=== PATIENT | female | born 1975 | race Caucasian/White ===

== ENCOUNTER 2017-07-29 08:27 | Emergency (ER) | payer MEDICAID ==
[~2017-07-29] VITALS: Ht 160 cm; Wt 89.0 kg
[~2017-07-29 08:27] MED LIST: ATOR10TA87 PO; HYDR1TAB PO
[2017-07-29 08:39] VITALS: BP 126/81
[2017-07-29] MEDS ORDERED: cyclobenzaprine 10mg tablet PO ONE (09:00)
[2017-07-29] MEDS ORDERED: ketorolac trometh inj. 60 MG/2 ML VIAL IM ONE (09:00)
[2017-07-29] MEDS ORDERED: METH500T PO (09:23)
== END 2017-07-29 09:37 | disposition home or self-care (01) ==
LOC: ER 08:32
DX: M54.6 Pain in thoracic spine (principal); G89.29 Other chronic pain; M06.9 Rheumatoid arthritis, unspecified; Z79.899 Other long term (current) drug therapy
CPT/HCPCS: 96372; 99283; J1885

== ENCOUNTER 2017-09-25 16:23 | Emergency (ER) | payer MEDICAID ==
[~2017-09-25] VITALS: Ht 160 cm; Wt 90.0 kg
[~2017-09-25 16:23] MED LIST changes: +METH500T PO
[2017-09-25] MEDS ORDERED: CIPR10DR LEFT EAR (16:58)
[2017-09-25 17:24] VITALS: BP 125/75
== END 2017-09-25 17:29 | disposition home or self-care (01) ==
LOC: ER 16:24
DX: H60.92 Unspecified otitis externa, left ear (principal); G89.29 Other chronic pain; M19.90 Unspecified osteoarthritis, unspecified site; Z79.899 Other long term (current) drug therapy
CPT/HCPCS: 99283

== ENCOUNTER 2017-12-18 12:57 | Emergency (ER) | payer MEDICAID ==
[~2017-12-18] VITALS: Ht 160 cm; Wt 92.0 kg
[2017-12-18 13:10] VITALS: BP 129/81
[2017-12-18 13:55] LABS: URINE HCG NEGATIVE (NEG)
[2017-12-18 14:10] LABS: CLARITY,URINE SLIGHTLY CLOUDY (Clear); COLOR,URINE YELLOW (Yellow); GLUCOSE, URINE NEGATIVE (Neg); KETONES,URINE NEGATIVE (Neg); LEUKOCYTE ESTERASE ,URINE NEGATIVE (Neg); NITRITES, URINE POSITIVE (Neg); OCCULT BLOOD,URINE SMALL (Neg); PROTEIN,URINE 30 mg/dl (Neg)
[2017-12-18 14:11] LABS: UA COLLECTION TYPE CLN CATCH MIDSTREAM
[2017-12-18 14:28] LABS: BACTERIA,URINE 4+ /HPF (Neg); WBC,URINE 20-30 /HPF (0-4)
[2017-12-18 14:29] LABS: SQUAMOUS EPITHELIAL CELL,UR MODERATE /LPF (FEW)
[2017-12-18] MEDS ORDERED: ketorolac trometh inj. 60 MG/2 ML VIAL IM ONE (14:45)
[2017-12-18] MEDS ORDERED: CefTRIAXone 1000mg IM Kit (w/lidocaine diluent) IM ONE (14:45)
[2017-12-18] MEDS ORDERED: CIPR-230 PO (14:53)
[2017-12-18] MEDS ORDERED: IBUP-1986 PO (14:53)
== END 2017-12-18 15:07 | disposition home or self-care (01) ==
LOC: ER 12:57
DX: N12 Tubulo-interstitial nephritis, not specified as acute or chronic (principal); R10.31 Right lower quadrant pain; E66.9 Obesity, unspecified; G89.29 Other chronic pain; F17.200 Nicotine dependence, unspecified, uncomplicated; M06.9 Rheumatoid arthritis, unspecified; Z87.442 Personal history of urinary calculi
CPT/HCPCS: 81001; 81025; 87088; 96372; 99284; J0696; J1885; 87077; 87186

== ENCOUNTER 2019-01-18 16:18 | Emergency (ER) | payer MEDICAID ==
[~2019-01-18] VITALS: Ht 160 cm; Wt 85.0 kg
[~2019-01-18 16:18] MED LIST changes: +IBUP-1986 PO; +METH-360 PO; +ONDA4TAB6 PO
[2019-01-18 16:28] VITALS: BP 143/76
[2019-01-18] MEDS ORDERED: ketorolac tromethamine 15mg/ml inj. IM ONE (18:35)
[2019-01-18] MEDS ORDERED: CYCL-1 PO (18:39)
[2019-01-18] MEDS ORDERED: IBUP-1984 PO (18:39)
== END 2019-01-18 19:08 | disposition home or self-care (01) ==
LOC: ER 16:19
DX: S29.012A Strain of muscle and tendon of back wall of thorax, initial encounter (principal); M54.5 Low back pain; M19.90 Unspecified osteoarthritis, unspecified site; G89.29 Other chronic pain; M06.9 Rheumatoid arthritis, unspecified; Z79.899 Other long term (current) drug therapy; Z79.1 Long term (current) use of non-steroidal anti-inflammatories (NSAID); Z87.442 Personal history of urinary calculi; X58.XXXA Exposure to other specified factors, initial encounter; Y93.01 Activity, walking, marching and hiking; Y92.89 Other specified places as the place of occurrence of the external cause; Y99.8 Other external cause status
CPT/HCPCS: 96372; 99283; J1885

== ENCOUNTER 2019-03-17 19:11 | Emergency (ER) | payer MEDICAID, OTHER ==
[~2019-03-17] VITALS: Ht 160 cm; Wt 89.7 kg
[~2019-03-17 19:11] MED LIST changes: +CYCL-1 PO
[2019-03-17 19:24] VITALS: BP 146/92
== END 2019-03-17 20:24 | disposition home or self-care (01) ==
LOC: ER 19:11
DX: J06.9 Acute upper respiratory infection, unspecified (principal); H92.01 Otalgia, right ear; G89.29 Other chronic pain; Z87.442 Personal history of urinary calculi; Z79.899 Other long term (current) drug therapy
CPT/HCPCS: 99281

== ENCOUNTER 2020-08-12 18:27 | Emergency (ER) | payer MEDICAID ==
[~2020-08-12] VITALS: Ht 160 cm; Wt 89.5 kg
[2020-08-12 18:42] VITALS: BP 117/62
== END 2020-08-12 20:28 | disposition home or self-care (01) ==
LOC: ER 18:27
DX: S93.402A Sprain of unspecified ligament of left ankle, initial encounter (principal); X50.9XXA Other and unspecified overexertion or strenuous movements or postures, initial encounter; Y93.89 Activity, other specified; Y92.89 Other specified places as the place of occurrence of the external cause; Y99.8 Other external cause status
CPT/HCPCS: 73560; 73610; 99284

== ENCOUNTER 2020-11-25 18:49 | Emergency (ER) | payer MEDICAID ==
[~2020-11-25] VITALS: Ht 160 cm; Wt 90.0 kg
[2020-11-26 00:06] LABS: BASOPHILS # (AUTO) 0.1 X10'3 (0-0.2); BASOPHILS % (AUTO) 0.8 % (0-1); EOSINOPHILS # (AUTO) 0.2 X10'3 (0-0.9); EOSINOPHILS % (AUTO) 1.8 % (0-6); HEMATOCRIT 36.3 % (35.0-45.0); HEMOGLOBIN 11.9 g/dl (12.0-16.0); LYMPHOCYTES # (AUTO) 4.5 X10'3 (1.1-4.8); LYMPHOCYTES % (AUTO) 49.7 % (21-51); MEAN CORPUSCULAR HEMOGLOBIN 30.3 PG (27.0-31.0); MEAN CORPUSCULAR HGB CONC 32.8 g/dL (33.0-36.5); MEAN CORPUSCULAR VOLUME 92.5 FL (78-98); MEAN PLATELET VOLUME 7.8 FL (7.4-10.4); MONOCYTES # (AUTO) 0.9 X10'3 (0-0.9); MONOCYTES % (AUTO) 10.3 % (2-12); NEUTROPHILS # (AUTO) 3.4 X10'3 (1.8-7.7); NEUTROPHILS % (AUTO) 37.4 % (42-75); PLATELET COUNT 406 X10'3 (140-440); RED BLOOD COUNT 3.93 X10'6 (4.20-5.60); RED CELL DISTRIBUTION WIDTH 13.9 % (11.5-14.5)
[2020-11-26 00:42] LABS: ALANINE AMINOTRANSFERASE 41 U/L (12-78); ALBUMIN 3.4 G/DL (3.4-5.0); ALBUMIN/GLOBULIN RATIO 0.9 (1.1-1.5); ALKALINE PHOSPHATASE 78 IU/L (46-116); ANION GAP 9 (8-16); ASPARTATE AMINO TRANSFERASE 33 U/L (10-37); BILIRUBIN,TOTAL 0.2 MG/DL (0.1-1.0); BLOOD UREA NITROGEN 12 MG/DL (7-18); BUN/CREATININE RATIO 18.5 (6.6-38.0); CALCIUM 8.1 MG/DL (8.5-10.1); CHLORIDE 109 MMOL/L (99-107); CREATININE 0.65 MG/DL (0.40-0.90); GLUCOSE 99 MG/DL (70-104); LIPASE < 50 U/L (73-393); POTASSIUM 3.6 MMOL/L (3.5-5.1); SODIUM 142 MMOL/L (135-145); TOTAL PROTEIN 7.1 G/DL (6.4-8.2); TROPONIN I < 0.04 NG/ML (0.0-0.05); eGFR > 90 ML/MIN
[2020-11-26 01:04] LABS: URINE HCG NEGATIVE (NEG)
[2020-11-26 01:25] LABS: CLARITY,URINE SLIGHTLY CLOUDY (Clear); COLOR,URINE DARK YELLOW (Yellow); GLUCOSE, URINE NEGATIVE (Neg); PROTEIN,URINE NEGATIVE (Neg); UA COLLECTION TYPE CLN CATCH MIDSTREAM
[2020-11-26 01:26] LABS: KETONES,URINE NEGATIVE (Neg); LEUKOCYTE ESTERASE ,URINE NEGATIVE (Neg); NITRITES, URINE NEGATIVE (Neg); OCCULT BLOOD,URINE SMALL (Neg); UROBILINOGEN,URINE 0.2 E.U/dL (0.2-1.0)
[2020-11-26 01:34] LABS: BACTERIA,URINE 1+ /HPF (Neg); MUCUS STRANDS MANY /LPF (Neg); SQUAMOUS EPITHELIAL CELL,UR MODERATE /LPF (FEW); WBC,URINE 0-4 /HPF (0-4)
[2020-11-26 01:35] LABS: CAL OXALATE CRYSTALS 3+ /HPF (NEGATIVE)
[2020-11-26] MEDS ORDERED: GOLYS PO (01:49)
[2020-11-26] MEDS ORDERED: TETanus/Pertussis (Acell)/Diphther VAC/PF (Tdap-Adult) 0.5ml syringe IMVAC ONE (01:55)
[2020-11-26] MEDS ORDERED: bacitracin 15gm ointment TP ONE (01:55)
[2020-11-26 02:06] VITALS: BP 101/62
== END 2020-11-26 02:41 | disposition home or self-care (01) ==
LOC: ER 18:50
DX: K59.00 Constipation, unspecified (principal); R42 Dizziness and giddiness; R11.0 Nausea; R06.02 Shortness of breath; G89.29 Other chronic pain; Z20.3 Contact with and (suspected) exposure to rabies; Z87.442 Personal history of urinary calculi; Z79.899 Other long term (current) drug therapy
CPT/HCPCS: 36415; 74018; 74176; 80053; 81001; 81025; 83690; 84484; 85025; 90471; 90715; 93005; 99285

== ENCOUNTER 2021-03-18 19:36 | Emergency (ER) | payer MEDICAID ==
[~2021-03-18 19:36] MED LIST changes: +GOLYS PO
== END 2021-03-18 23:39 | disposition left against medical advice (07) ==
LOC: ER 19:39
DX: R13.10 Dysphagia, unspecified (principal); Z53.21 Procedure and treatment not carried out due to patient leaving prior to being seen by health care provider

== ENCOUNTER 2022-02-13 18:26 | Emergency (ER) | payer MEDICAID ==
[~2022-02-13] VITALS: Ht 160 cm; Wt 89.5 kg
[2022-02-13 20:00] VITALS: BP 124/70
== END 2022-02-13 21:55 | disposition home or self-care (01) ==
LOC: ER 18:26
DX: J06.9 Acute upper respiratory infection, unspecified (principal); R05.9 Cough, unspecified; R11.2 Nausea with vomiting, unspecified; G89.29 Other chronic pain; Z87.442 Personal history of urinary calculi; Z79.899 Other long term (current) drug therapy
CPT/HCPCS: 99281

== ENCOUNTER 2022-08-06 15:18 | Emergency (ER) | payer MEDICAID ==
[~2022-08-06] VITALS: Ht 160 cm; Wt 97.6 kg
[2022-08-06 16:05] LABS: COLOR,URINE YELLOW (Yellow); GLUCOSE, URINE NEGATIVE (Neg); KETONES,URINE NEGATIVE (Neg); LEUKOCYTE ESTERASE ,URINE NEGATIVE (Neg); NITRITES, URINE NEGATIVE (Neg); OCCULT BLOOD,URINE MODERATE (Neg); PROTEIN,URINE NEGATIVE (Neg)
[2022-08-06 16:08] LABS: BASOPHILS # (AUTO) 0.2 X10'3 (0-0.2); BASOPHILS % (AUTO) 1.5 % (0-1); EOSINOPHILS # (AUTO) 0.3 X10'3 (0-0.9); EOSINOPHILS % (AUTO) 2.3 % (0-6); HEMATOCRIT 39.4 % (35.0-45.0); HEMOGLOBIN 12.7 g/dl (12.0-16.0); LYMPHOCYTES # (AUTO) 5.7 X10'3 (1.1-4.8); LYMPHOCYTES % (AUTO) 42.9 % (21-51); MEAN CORPUSCULAR HEMOGLOBIN 29.4 PG (27.0-31.0); MEAN CORPUSCULAR HGB CONC 32.2 g/dL (33.0-36.5); MEAN CORPUSCULAR VOLUME 91.2 FL (78-98); MEAN PLATELET VOLUME 7.6 FL (7.4-10.4); MONOCYTES # (AUTO) 1.3 X10'3 (0-0.9); MONOCYTES % (AUTO) 9.5 % (2-12); NEUTROPHILS # (AUTO) 5.8 X10'3 (1.8-7.7); NEUTROPHILS % (AUTO) 43.8 % (42-75); PLATELET COUNT 588 X10'3 (140-440); RED BLOOD COUNT 4.31 X10'6 (4.20-5.60); RED CELL DISTRIBUTION WIDTH 15.5 % (11.5-14.5); WHITE BLOOD COUNT 13.2 X10'3 (4.5-11.0)
[2022-08-06 16:09] LABS: CLARITY,URINE SLIGHTLY CLOUDY (Clear); UA COLLECTION TYPE CLN CATCH MIDSTREAM
[2022-08-06 16:10] LABS: URINE HCG NEGATIVE (NEG); WBC,URINE 0-4 /HPF (0-4)
[2022-08-06 16:11] LABS: BACTERIA,URINE FEW /HPF (Neg); MUCUS STRANDS MODERATE /LPF (Neg); SQUAMOUS EPITHELIAL CELL,UR MANY /LPF (FEW)
[2022-08-06 16:14] LABS: ALANINE AMINOTRANSFERASE 45 U/L (12-78); ALBUMIN/GLOBULIN RATIO 0.9 (1.1-1.5); ALKALINE PHOSPHATASE 92 IU/L (46-116); ANION GAP 8 (8-16); ASPARTATE AMINO TRANSFERASE 36 U/L (10-37); BILIRUBIN,TOTAL 0.4 MG/DL (0.1-1.0); BLOOD UREA NITROGEN 13 MG/DL (7-18); BUN/CREATININE RATIO 16.5 (10.0-20.0); CALCIUM 9.3 MG/DL (8.5-10.1); CHLORIDE 105 MMOL/L (99-107); CREATININE 0.79 MG/DL (0.40-0.90); GLUCOSE 105 MG/DL (70-104); LIPASE 56 U/L (73-393); SODIUM 138 MMOL/L (135-145); TOTAL CARBON DIOXIDE 24.6 MMOL/L (24-32); TOTAL PROTEIN 8.3 G/DL (6.4-8.2); eGFR 78 ML/MIN
[2022-08-06] MEDS ORDERED: guaiFENesin 200mg/20mg codeine phos 10ml UD oral syrup PO ONE (17:10)
[2022-08-06] MEDS ORDERED: normal saline 1000ml 1,000 ML IV ONE (17:10)
[2022-08-06] MEDS ORDERED: ondansetron/PF 4mg/2ml inj IV ONE (17:10)
[2022-08-06] MEDS ORDERED: ONDA4TAB12 PO (17:18)
[2022-08-06] MEDS ORDERED: ALBU8HFA PO (17:18)
[2022-08-06] MEDS ORDERED: CALC625T62 PO (17:18)
[2022-08-06] MEDS ORDERED: GUAI-647 PO (17:18)
[2022-08-06] MEDS ORDERED: benzonatate 100mg capsule PO ONE (17:55)
[2022-08-06 19:02] VITALS: BP 112/51
== END 2022-08-06 19:04 | disposition home or self-care (01) ==
LOC: ER 15:18
DX: J40 Bronchitis, not specified as acute or chronic (principal); K59.00 Constipation, unspecified; G89.29 Other chronic pain; M54.9 Dorsalgia, unspecified; Z79.899 Other long term (current) drug therapy; Z79.1 Long term (current) use of non-steroidal anti-inflammatories (NSAID)
CPT/HCPCS: 36415; 71045; 74018; 80053; 81001; 81025; 83690; 85025; 96361; 96374; 99284; J2405; J7030

== ENCOUNTER 2022-09-13 22:14 | Emergency (ER) | payer MEDICAID ==
[~2022-09-13] VITALS: Ht 160 cm; Wt 95.5 kg
[~2022-09-13 22:14] MED LIST changes: +CALC625T62 PO; +ONDA4TAB12 PO
[2022-09-13 22:18] VITALS: BP 156/100
[2022-09-13] MEDS ORDERED: ondansetron 4mg rapidly disintigrating tab PO STA (22:36)
[2022-09-13] MEDS ORDERED: mag hydrox/Alum hydrox/simeth 30ml oral suspension PO ONE (22:40)
[2022-09-13] MEDS ORDERED: pantoprazole 40mg Tablet.DR PO ONE (22:40)
[2022-09-13] MEDS ORDERED: LIDOcaine Viscous 15ml cup MM ONE (22:40)
[2022-09-13] MEDS ORDERED: PANT-47 PO (23:07)
== END 2022-09-13 23:19 | disposition home or self-care (01) ==
LOC: ER 22:15
DX: R12 Heartburn (principal); M19.90 Unspecified osteoarthritis, unspecified site
CPT/HCPCS: 99283

== ENCOUNTER 2022-12-15 14:25 | Emergency (ER) | payer MEDICAID ==
[~2022-12-15] VITALS: Ht 160 cm; Wt 95.5 kg
[~2022-12-15 14:25] MED LIST changes: +PANT-47 PO
[2022-12-15] MEDS ORDERED: dexamethasone sod phosphate 10mg/ml inj IM STA (15:34)
[2022-12-15] MEDS ORDERED: ketorolac trometh inj. 60 MG/2 ML VIAL IM ONE (15:35)
[2022-12-15 16:39] VITALS: BP 119/83; PULSE 63; RESP 16; TEMP 98.2; O2SAT 96
--- NOTE | 2022-12-15 17:55 | NUR ---
I AGREE WITH THE ASSESSMENT PER Orlando LEE LVN.
== END 2022-12-15 17:56 | disposition home or self-care (01) ==
LOC: ER 14:25
DX: M54.9 Dorsalgia, unspecified (principal); G89.29 Other chronic pain; Z79.899 Other long term (current) drug therapy
CPT/HCPCS: 96372; 99284; J1100; J1885

== ENCOUNTER → 2023-04-29 | Emergency (ER) | payer MEDICAID ==
[~2023-04-29] VITALS: Ht 160 cm; Wt 101.6 kg
[~2023-04-29] MED LIST changes: +LIDO700A32 TOP
[2023-04-29 11:45] VITALS: BP 122/58; PULSE 77; RESP 18; TEMP 98.5; O2SAT 95
[2023-04-29 12:30] LABS: URINE HCG NEGATIVE (NEG)
[2023-04-29 12:32] LABS: BILIRUBIN,URINE NEGATIVE (Neg); CLARITY,URINE CLEAR (Clear); COLOR,URINE YELLOW (Yellow); GLUCOSE, URINE NEGATIVE (Neg); KETONES,URINE NEGATIVE (Neg); LEUKOCYTE ESTERASE ,URINE NEGATIVE (Neg); NITRITES, URINE NEGATIVE (Neg); OCCULT BLOOD,URINE SMALL (Neg); PH,URINE 5.5 (4.8-8.0); PROTEIN,URINE NEGATIVE (Neg); UROBILINOGEN,URINE 0.2 E.U/dL (0.2-1.0)
[2023-04-29 12:34] LABS: UA COLLECTION TYPE CLN CATCH MIDSTREAM
[2023-04-29 12:44] LABS: MUCUS STRANDS FEW /LPF (Neg); SQUAMOUS EPITHELIAL CELL,UR MODERATE /LPF (FEW)
[2023-04-29 12:45] LABS: BACTERIA,URINE 1+ /HPF (Neg); WBC,URINE 0-4 /HPF (0-4)
[2023-04-29] MEDS: acetaminophen 325mg tablet PO ONE (13:47)
== END | disposition home or self-care (01) ==
LOC: ER 10:45
DX: S29.012A Strain of muscle and tendon of back wall of thorax, initial encounter (principal); M19.90 Unspecified osteoarthritis, unspecified site; Z79.899 Other long term (current) drug therapy; Z79.1 Long term (current) use of non-steroidal anti-inflammatories (NSAID); X58.XXXA Exposure to other specified factors, initial encounter; Y93.89 Activity, other specified; Y92.89 Other specified places as the place of occurrence of the external cause; Y99.8 Other external cause status
CPT/HCPCS: 81001; 81025; 99283

== ENCOUNTER 2023-05-08 16:13 | Emergency (ER) | payer MEDICAID ==
[~2023-05-08] VITALS: Ht 160 cm; Wt 100.8 kg
[2023-05-08 16:34] VITALS: BP 134/77; PULSE 82; RESP 18; TEMP 97.2; O2SAT 98
[2023-05-08] MEDS ORDERED: ALBU8HFA INH (16:42)
[2023-05-08] MEDS ORDERED: PRED20TA PO (16:42)
== END 2023-05-08 17:27 | disposition home or self-care (01) ==
LOC: ER 16:15
DX: J06.9 Acute upper respiratory infection, unspecified (principal); G89.29 Other chronic pain; M54.9 Dorsalgia, unspecified; Z87.442 Personal history of urinary calculi; Z79.899 Other long term (current) drug therapy
CPT/HCPCS: 99283

== ENCOUNTER 2024-01-11 17:19 | Emergency (ER) | payer MEDICAID ==
[~2024-01-11] VITALS: Ht 160 cm; Wt 97.7 kg
[~2024-01-11 17:19] MED LIST changes: +ONDA-243 PO; -ONDA4TAB12 PO
[2024-01-11 18:36] VITALS: TEMP 97.9
[2024-01-11] MEDS ORDERED: VALA100031 PO (19:17)
[2024-01-11] MEDS ORDERED: SULF1TAB49 PO (19:17)
[2024-01-11] MEDS: sulfamethoxazole/trimethoprim DS (800/160mg) tablet PO ONE (19:31)
[2024-01-11 19:38] VITALS: BP 114/72; PULSE 70; RESP 16; O2SAT 95
== END 2024-01-11 19:35 | disposition home or self-care (01) ==
LOC: ER 17:19
DX: L03.113 Cellulitis of right upper limb (principal); B02.9 Zoster without complications; Z88.5 Allergy status to narcotic agent; Z88.6 Allergy status to analgesic agent; Z88.8 Allergy status to other drugs, medicaments and biological substances
CPT/HCPCS: 99283

== ENCOUNTER 2024-02-24 16:42 | Emergency (ER) | payer MEDICAID ==
[~2024-02-24] VITALS: Ht 160 cm; Wt 99.2 kg
[~2024-02-24 16:42] MED LIST changes: +VALA100031 PO
[2024-02-24] MEDS: HYDROcodone/acetaminophen 10/325mg tab PO ONE (18:33)
[2024-02-24] MEDS: ondansetron 4mg rapidly disintigrating tab PO ONE (18:33)
[2024-02-24] MEDS: cyclobenzaprine 10mg tablet PO ONE (18:33)
[2024-02-24] MEDS ORDERED: HYDR-3965 PO (18:33)
[2024-02-24] MEDS ORDERED: MELO-100 PO (18:33)
[2024-02-24] MEDS: ketorolac trometh 30MG/ML vial 30 MG/ML VIAL IM ONE (18:39)
[2024-02-24 18:42] VITALS: BP 140/84; PULSE 86; RESP 16; TEMP 98; O2SAT 96
== END 2024-02-24 18:44 | disposition home or self-care (01) ==
LOC: ER 16:42
DX: S39.012A Strain of muscle, fascia and tendon of lower back, initial encounter (principal); G89.29 Other chronic pain; M06.9 Rheumatoid arthritis, unspecified; Z79.899 Other long term (current) drug therapy; X58.XXXA Exposure to other specified factors, initial encounter; Y93.89 Activity, other specified; Y92.89 Other specified places as the place of occurrence of the external cause; Y99.8 Other external cause status
CPT/HCPCS: 72100; 96372; 99284; J1885

== ENCOUNTER 2024-04-21 00:34 | Inpatient (IN) | payer MEDICAID ==
[~2024-04-21] VITALS: Ht 160 cm; Wt 95.5 kg
[~2024-04-21 00:34] MED LIST changes: +MELO-100 PO
[2024-04-21 01:26] LABS: BASOPHILS # (AUTO) 0.1 X10'3 (0-0.2); BASOPHILS % (AUTO) 0.6 % (0-1); EOSINOPHILS # (AUTO) 0.1 X10'3 (0-0.9); EOSINOPHILS % (AUTO) 0.6 % (0-6); HEMATOCRIT 38.3 % (35.0-45.0); HEMOGLOBIN 12.8 g/dl (12.0-16.0); LYMPHOCYTES # (AUTO) 2.8 X10'3 (1.1-4.8); LYMPHOCYTES % (AUTO) 16.2 % (21-51); MEAN CORPUSCULAR HEMOGLOBIN 29.9 PG (27.0-31.0); MEAN CORPUSCULAR HGB CONC 33.5 g/dL (33.0-36.5); MEAN CORPUSCULAR VOLUME 89.1 FL (78-98); MEAN PLATELET VOLUME 7.6 FL (7.4-10.4); MONOCYTES # (AUTO) 1.1 X10'3 (0-0.9); MONOCYTES % (AUTO) 6.2 % (2-12); NEUTROPHILS % (AUTO) 76.4 % (42-75); PLATELET COUNT 489 X10'3 (140-440); RED CELL DISTRIBUTION WIDTH 14.5 % (11.5-14.5); WHITE BLOOD COUNT 17.1 X10'3 (4.5-11.0)
[2024-04-21 01:40] LABS: ALANINE AMINOTRANSFERASE 38 U/L (12-78); ALBUMIN 3.6 G/DL (3.4-5.0); ALBUMIN/GLOBULIN RATIO 0.8 (1.1-1.5); ALKALINE PHOSPHATASE 107 IU/L (46-116); ANION GAP 9 (8-16); ASPARTATE AMINO TRANSFERASE 26 U/L (10-37); BILIRUBIN,TOTAL 0.3 MG/DL (0.1-1.0); BLOOD UREA NITROGEN 10 MG/DL (7-18); BUN/CREATININE RATIO 17.9 (10.0-20.0); CALCIUM 8.6 MG/DL (8.5-10.1); CHLORIDE 105 MMOL/L (99-107); CREATININE 0.56 MG/DL (0.40-0.90); GLUCOSE 151 MG/DL (70-104); LIPASE 20 U/L (16-77); POTASSIUM 3.7 MMOL/L (3.5-5.1); SODIUM 141 MMOL/L (135-145); TOTAL CARBON DIOXIDE 26.9 MMOL/L (24-32); eCRCL 102 ML/MIN; eGFR > 90 ML/MIN
[2024-04-21] MEDS: ketorolac trometh 15mg/ml vial 15 MG/ML ML IV ONE (01:46)
[2024-04-21] MEDS: ondansetron/PF 4mg/2ml inj IV ONE (01:46)
[2024-04-21] MEDS: normal saline 1000ML IV soln IVB ONE (01:47)
[2024-04-21] MEDS: acetaminophen 1,000mg/100ml IV 100 ML IV ONE (01:47)
[2024-04-21 02:01] LABS: BILIRUBIN,URINE NEGATIVE (Neg); CLARITY,URINE CLOUDY (Clear); COLOR,URINE YELLOW (Yellow); GLUCOSE, URINE NEGATIVE (Neg); KETONES,URINE NEGATIVE (Neg); LEUKOCYTE ESTERASE ,URINE MODERATE (Neg); OCCULT BLOOD,URINE LARGE (Neg); PROTEIN,URINE 100 mg/dl (Neg); UROBILINOGEN,URINE 0.2 E.U/dL (0.2-1.0)
[2024-04-21 02:02] LABS: URINE HCG NEGATIVE (NEG)
[2024-04-21 02:06] LABS: NITRITES, URINE NEGATIVE (Neg); UA COLLECTION TYPE CLN CATCH MIDSTREAM
[2024-04-21 02:10] LABS: BACTERIA,URINE 3+ /HPF (Neg); RBC,URINE 20-50 /HPF (0-2); SQUAMOUS EPITHELIAL CELL,UR MODERATE /LPF (FEW); WBC,URINE TNTC /HPF (0-4)
[2024-04-21] MEDS: CefTRIAXone/D5W-Rocephin 1gm 50 ML IV ONE (04:16)
[2024-04-21] MEDS ORDERED: acetaminophen 325mg tablet PO PRN (05:30)
[2024-04-21] MEDS ORDERED: magnesium Cl slow-release 64mg tablet PO PRN (05:30)
[2024-04-21] MEDS ORDERED: magnesium sulf-water 4G/100mL 100 ML IV PRN (05:30)
[2024-04-21] MEDS ORDERED: potassium Cl 20 mEq SR tablet PO PRN ×2 (05:30)
[2024-04-21] MEDS ORDERED: ondansetron/PF 4mg/2ml inj IV PRN (05:30)
[2024-04-21] MEDS ORDERED: potassium Cl 40MEQ/1/2NS 520ml 520 ML IV PRN (05:30)
[2024-04-21] MEDS ORDERED: mag hydrox/Alum hydrox/simeth 30ml oral suspension PO PRN (05:30)
[2024-04-21] MEDS ORDERED: magnesium sulf-water 2g/50mL 50 ML IV PRN (05:30)
[2024-04-21] MEDS ORDERED: acetaminophen 1,000mg/100ml IV 100 ML IV PRN (05:55)
[2024-04-21] MEDS ORDERED: albuterol 2.5 MG/3 ML nebule NEB PRN (05:55)
[2024-04-21] MEDS: normal saline 1000ml 1,000 ML IV SCH (06:36)
[2024-04-21 06:58] LABS: CHOL/HDL RATIO 3.5 (0.00-4.99); CHOLESTEROL 147 MG/DL (0-200); HDL CHOLESTEROL 42 MG/DL (35-60); LDL CHOLESTEROL 89 MG/DL (50-100); POTASSIUM 3.5 MMOL/L (3.5-5.1); TRIGLYCERIDES 73 MG/DL (20-135)
[2024-04-21 07:44] LABS: HEMOGLOBIN A1C 5.8 % (4.5-6.2)
[2024-04-21] MEDS: docusate sod 100mg capsule PO SCH (08:00)
[2024-04-21] MEDS: K and/or MAG REPLACEMENT MC SCH (08:00)
[2024-04-21] MEDS: CEFEPIME 2gm in D5W 50mL 50 ML IV SCH (08:17)
[2024-04-21 08:57] LABS: URINE AMPHETAMINE SCREEN NEGATIVE (Neg); URINE BARBITUATE SCREEN NEGATIVE (Neg); URINE BENZODIAZEPINES SCREEN NEGATIVE (Neg); URINE CANNABINOID SCREEN POSITIVE (Neg); URINE COCAINE SCREEN NEGATIVE (Neg); URINE METHADONE SCREEN NEGATIVE (Neg); URINE OPIATE SCREEN NEGATIVE (Neg); URINE PHENCYCLIDINE SCREEN NEGATIVE (Neg)
[2024-04-21] MEDS: acetaminophen 325mg tablet PO PRN (09:41)
[2024-04-21 12:07] LABS: BASOPHILS # (AUTO) 0.1 X10'3 (0-0.2); EOSINOPHILS # (AUTO) 0.2 X10'3 (0-0.9); EOSINOPHILS % (AUTO) 1.9 % (0-6); HEMOGLOBIN 12.5 g/dl (12.0-16.0); LYMPHOCYTES # (AUTO) 4.7 X10'3 (1.1-4.8); LYMPHOCYTES % (AUTO) 36.1 % (21-51); MEAN CORPUSCULAR HEMOGLOBIN 29.8 PG (27.0-31.0); MEAN CORPUSCULAR HGB CONC 32.9 g/dL (33.0-36.5); MEAN CORPUSCULAR VOLUME 90.5 FL (78-98); MONOCYTES # (AUTO) 1.1 X10'3 (0-0.9); MONOCYTES % (AUTO) 8.6 % (2-12); NEUTROPHILS # (AUTO) 6.8 X10'3 (1.8-7.7); NEUTROPHILS % (AUTO) 52.4 % (42-75); PLATELET COUNT 507 X10'3 (140-440); RED CELL DISTRIBUTION WIDTH 14.6 % (11.5-14.5)
[2024-04-21 15:45] VITALS: BP 117/61; PULSE 82; RESP 16; TEMP 97.7; O2SAT 94
[2024-04-21 18:00] VITALS: BP 137/81; PULSE 71; RESP 17; TEMP 97.1; O2SAT 95
[2024-04-21] MEDS ORDERED: IBUP-1984 PO (18:05)
[2024-04-21] MEDS ORDERED: CHOL500049 PO (18:05)
[2024-04-21] MEDS ORDERED: ALBU10.7 INH (18:08)
[2024-04-21 20:00] VITALS: RESP 18; O2SAT 98
[2024-04-21] MEDS: HYDROcodone/acetaminophen 5mg/325mg tablet PO PRN (20:02)
[2024-04-21] MEDS: enoxaparin 40mg/0.4ml syringe SQ SCH (20:05)
[2024-04-21] MEDS: magnesium hydroxide 30ml (MOM) UD suspension PO PRN (20:06)
[2024-04-21 22:00] VITALS: BP 137/81; PULSE 71; RESP 17; TEMP 97.1; O2SAT 95
[2024-04-22 02:00] VITALS: BP 109/58; PULSE 52; RESP 17; TEMP 97.4; O2SAT 94
[2024-04-22] MEDS: Melatonin 3mg tablet PO PRN (03:14)
[2024-04-22 04:12] VITALS: BP 137/81; PULSE 71; RESP 17; TEMP 97.1; O2SAT 95
[2024-04-22 07:00] VITALS: BP 98/47; PULSE 73; RESP 16; TEMP 97; O2SAT 93; O2SAT 96
[2024-04-22 07:38] LABS: BASOPHILS # (AUTO) 0.1 X10'3 (0-0.2); BASOPHILS % (AUTO) 1.2 % (0-1); EOSINOPHILS # (AUTO) 0.3 X10'3 (0-0.9); EOSINOPHILS % (AUTO) 3.4 % (0-6); HEMOGLOBIN 12.1 g/dl (12.0-16.0); LYMPHOCYTES # (AUTO) 4.8 X10'3 (1.1-4.8); LYMPHOCYTES % (AUTO) 54.8 % (21-51); MEAN CORPUSCULAR HEMOGLOBIN 30.5 PG (27.0-31.0); MEAN CORPUSCULAR HGB CONC 33.6 g/dL (33.0-36.5); MEAN CORPUSCULAR VOLUME 90.5 FL (78-98); MEAN PLATELET VOLUME 8.7 FL (7.4-10.4); MONOCYTES % (AUTO) 10.9 % (2-12); NEUTROPHILS # (AUTO) 2.6 X10'3 (1.8-7.7); NEUTROPHILS % (AUTO) 29.7 % (42-75); PLATELET COUNT 497 X10'3 (140-440); RED BLOOD COUNT 3.97 X10'6 (4.20-5.60); RED CELL DISTRIBUTION WIDTH 14.8 % (11.5-14.5); WHITE BLOOD COUNT 8.8 X10'3 (4.5-11.0)
[2024-04-22 07:50] LABS: APTT 25 SECONDS (22-32); PROTHROMBIN TIME 10.3 SECONDS (9.0-12.0)
[2024-04-22] MEDS ORDERED: CefTRIAXone 2gm/D5W 50ml BAG 50 ML IV SCH (08:00)
[2024-04-22 08:11] LABS: ALANINE AMINOTRANSFERASE 34 U/L (12-78); ALBUMIN/GLOBULIN RATIO 0.7 (1.1-1.5); ALKALINE PHOSPHATASE 93 IU/L (46-116); ANION GAP 5 (8-16); ASPARTATE AMINO TRANSFERASE 27 U/L (10-37); BILIRUBIN,TOTAL 0.3 MG/DL (0.1-1.0); BLOOD UREA NITROGEN 11 MG/DL (7-18); BUN/CREATININE RATIO 18.3 (10.0-20.0); CALCIUM 8.5 MG/DL (8.5-10.1); CHLORIDE 107 MMOL/L (99-107); GLUCOSE 98 MG/DL (70-104); PHOSPHORUS 4.1 MG/DL (2.3-4.5); POTASSIUM 4.4 MMOL/L (3.5-5.1); SODIUM 139 MMOL/L (135-145); TOTAL CARBON DIOXIDE 27.2 MMOL/L (24-32); TOTAL PROTEIN 7.2 G/DL (6.4-8.2); eCRCL 95 ML/MIN; eGFR > 90 ML/MIN
[2024-04-22 08:49] LABS: PLATELET ESTIMATE INCREASED; TOTAL CELLS COUNTED 100
[2024-04-22] MEDS: clotrimazole topical cream 15gm tube TP SCH (08:56)
[2024-04-22 11:00] VITALS: BP 100/41; PULSE 66; RESP 16; TEMP 97.7; O2SAT 93
[2024-04-22] MEDS ORDERED: CIPR-259 PO (11:04)
== END 2024-04-22 14:20 | disposition home or self-care (01) | DRG 463 ==
LOC: ER 00:35 → UNDOADMIN 02:25 → ED HOLD 02:25 → PCU 3S 15:30 → UNDODISIN 04-22 14:20
PROVIDERS: ADMIT Internal Medicine Critical Care Medicine; ATTEND Internal Medicine
DX: N10 Acute pyelonephritis (principal); I88.9 Nonspecific lymphadenitis, unspecified; J45.909 Unspecified asthma, uncomplicated; M06.9 Rheumatoid arthritis, unspecified
CPT/HCPCS: 36415; 74176; 80053; 80061; 80305; 81001; 81025; 83036; 83605; 83690; 83735; 84100; 84132; 84145; 85007; 85025; 85610; 85730; 87040; 87077; 87081; 87088; 87186; 99285; G0378; J0131; J0692; J0696; J1650; J1885; J2405; J7030

== ENCOUNTER 2024-11-20 19:44 | Inpatient (IN) | payer MEDICAID ==
[~2024-11-20] VITALS: Ht 160 cm; Wt 110.0 kg
[~2024-11-20 19:44] MED LIST changes: +ALBU10.7 INH; -ATOR10TA87 PO; -CALC625T62 PO; +CHOL500049 PO; -CYCL-1 PO; -GOLYS PO; -HYDR1TAB PO; +IBUP-1984 PO; -IBUP-1986 PO; +LIDO-52 TOP; -LIDO700A32 TOP; -MELO-100 PO; -METH-360 PO; -METH500T PO; -ONDA-243 PO; -ONDA4TAB6 PO; -PANT-47 PO; -VALA100031 PO
--- NOTE | 2024-11-20 20:06 | Physician Documentation ---
History of Present Illness ~ Chief Complaint: Dizziness Stated Complaint: DIZZINESS Time Seen by MD: 19:58 Primary Medical Doctor: [facility] HPI This is a 49-year-old female who presents for evaluation of a dizziness/disequilibrium for the last three days, no obvious trigger provocation. The particular palliating or aggravating factors. She also noticed that three days ago she had developed " heaviness in her left upper extremity. She did not attempt to treat her symptoms. She also felt dehydrated so she drank a bunch of electrolyte drinks. Because the symptoms persist that she decided to present to be evaluated. She denies any chest pain or difficulty breathing. This never happened in the past. She smokes. She denies drug use. Medication Reconciliation Allergies: Coded Allergies: No Known Allergies (Unverified , 11/20/24) Scheduled Cholecalciferol (Vitamin D3) (Vitamin D3), 1 CAP PO Q7D, (Reported) Lidocaine (Lidoderm), 1 PATCH TOP DAILY Scheduled PRN Albuterol Sulfate/Budesonide (Airsupra 90-80 Mcg Inhaler), 90 MCG INH Q4HWA PRN for cough & congestion, (Reported) Ibuprofen* (Motrin*), 1 TAB PO Q6H PRN PRN for pain or fever, (Reported) Past Medical History Past Medical History: Kidney Stones, Chronic Back Pain, Rheumatoid Arthritis Past Surgical History: noncontributory Alcohol Use: None Drug Use: none Lives with: Family Lives In: Home Occupation: employed Review of Systems ROS 10 point review of systems was performed and unless noted above in HPI is negative for acute process/complaint. Physical Exam Vital Signs: Temperature: 97.6, Source: Temporal, Heart Rate: 84, Respiratory Rate: 15, BP: 129/73, Pulse Oximetry: 98, Weight: 110.000 General Appearance GENERAL: Awake, alert, oriented, GCS 15, no apparent distress, non-toxic appearing, answers questions, follows commands appropriately. Examined in triage, placed in bed 12. HEENT: Atraumatic, normocephalic, pupils equal, extraocular muscles intact, sclerae anicteric, mucus membranes moist, oropharynx is clear, no stridor. NECK: supple, full active range of motion, trachea midline, no thyromegaly, no lymphadenopathy, no JVD. CARDIOVASCULAR: regular rate/rhythm, no murmurs/gallops/rubs, Pulses are 2+ in all extremities and symmetric. Capillary refill less than 2 seconds. PULMONARY: Nonlabored, good air movement ,no respiratory distress, speaking in full sentences, clear to auscultation bilaterally, no wheezing, no ronchi, no rales, no accessory muscle use. GASTROINTESTINAL: Soft, non-tender, non-distended, normal active bowel sounds, no organomegaly, no pulsatile masses, no CVA tenderness. NEUROLOGIC: Lucid with normal mental status. Normal facial symmetry. There is decreased sensation in V1 through V3 dermatomes of her face on the left side, otherwise cranial nerves 2-12 are intact. Moves all extremities symmetrically and with purpose. There is decreased sensation in the left upper extremity and left lower extremity compared to the contralateral side. Her strength is 4/5 in the left upper extremity, 5/5 in right upper extremity and bilateral lower extremities. No ataxia. Speech is fluid without evidence of dysarthria or aphasia. MUSCULOSKELETAL: There is full range of motion of all extremities. There is no joint pain or joint swelling or joint erythema. There is no muscle pain or tenderness or swelling. EXTREMITIES: warm, well-perfused, no cyanosis, no clubbing, no edema, no acute deformities. Skin: warm, dry, no rashes or lesions, no jaundice, no petechiae orpurpura. No ecchymosis. PSYCHIATRIC: Normal affect, normal insight, normal concentration. Focused exam: [] Progress Results/Orders Results/Orders Orders - LATIA PRITCHARD DO Urinalysis, Cult If Indicated (11/20/24 19:58) Drug Screen, Urine (11/20/24 19:58) Chest,Single View (11/20/24 19:58) Ct Stroke Alert (11/20/24 19:58) Cta Neck/Head (11/20/24 19:58) * Blood Glucose Assessment * ONCE (11/20/24 19:58) * Npo Until Passed Bedside Swa (11/20/24 19:58) Nursing Swallow Screen (11/20/24 19:58) [place] Prov.Neuro Consult (11/20/24 20:59) Completed Orders - LATIA PRITCHARD DO Electrocardiogram (11/20/24 19:58) Cbc/Diff (11/20/24 19:58) BMP (11/20/24 19:58) Pt Inr (11/20/24 19:58) PTT (11/20/24 19:58) Type And Screen (11/20/24 19:58) Hcg, Ur Ql (11/20/24 19:58) Chest,Single View (11/20/24 19:58) Ct Stroke Alert (11/20/24 19:58) Cta Neck/Head (11/20/24 19:58) Ethanol (11/20/24 19:58) ESR (11/20/24 19:58) C-Reactive Protein (11/20/24 19:58) PBNP (11/20/24 19:58) Hs Troponin I W Calculations (11/20/24 19:58) Hs Troponin I W Calculations (11/20/24 21:58) Iohexol 350mg/Ml 100ml (Omnipaque 350mg/ (11/20/24 20:07) Vital Signs 11/20/24 11/20/24 11/20/24 11/20/24 19:48 20:07 21:11 22:50 Temp 97.6 97.6 97.6 97.6 Pulse 84 88 64 72 Resp 15 16 16 15 B/P (MAP) 129/73 120/63 (82) 113/86 (95) 92/49 (63) Pulse Ox 98 96 96 96 11/20/24 11/21/24 23:09 00:05 Temp 97.6 Pulse 63 61 Resp 16 18 B/P (MAP) 90/51 109/53 (71) Pulse Ox 98 96 Laboratory Tests Test 11/20/24 20:15 11/20/24 22:21 11/21/24 00:02 White Blood Count 15.8 H Red Blood Count 4.72 Hemoglobin 13.4 Hematocrit 41.5 Mean Corpuscular Volume 87.9 Mean Corpuscular Hemoglobin 28.4 Mean Corpuscular Hemoglobin Concent 32.4 L Red Cell Distribution Width 14.7 H Platelet Count 515 H Mean Platelet Volume 8.1 Neutrophils (%) (Auto) 59.2 Lymphocytes (%) (Auto) 31.8 Monocytes (%) (Auto) 6.6 Eosinophils (%) (Auto) 1.3 Basophils (%) (Auto) 1.1 H Neutrophils # (Auto) 9.4 H Lymphocytes # (Auto) 5.0 H Monocytes # (Auto) 1.0 H Eosinophils # (Auto) 0.2 Basophils # (Auto) 0.2 CBC Comment Erythrocyte Sedimentation Rate 23 H Prothrombin Time 10.3 INR International Normalized Ratio 1.0 Activated Partial Thromboplast Time 25 Coagulation Comments Sodium Level 140 Potassium Level 3.5 Chloride Level 104 Carbon Dioxide Level 24.6 Anion Gap 11 Blood Urea Nitrogen 8 Creatinine 0.69 Estimated GFR/1.73 m2 > 90 BUN/Creatinine Ratio 11.6 Glucose Level 110 H Calcium Level 8.9 Troponin I High Sensitivity 4 4 C-Reactive Protein 0.78 H Pro-B-Type Natriuretic Peptide 30 Albumin 3.8 Chemistry Comments Ethyl Alcohol Level < 10 Troponin I High Sens Percent Delta 0 Troponin I Hi Sens Absolute Change 0 Urine HCG, Qualitative Negative Urine Comment Drug Screen Comment EKG/XRAY/CT/US/VASC/MRI EKG : Additional Comment EKG was obtained and interpreted by myself shows sinus rhythm, rate of 78, normal ND interval, narrow QRS, no QT prolongation, borderline left axis, no STEMI. Medical Decision Making Findings Facility Status: ED Holds, RME process The plan was discussed with the patient, who demonstrates clear understanding of the plan and is in agreement with the plan unless otherwise noted in the chart. All questions have been answered, all concerns were addressed unless otherwise documented. I was available throughout their ED stay for frequent reassessment and questi ons. Differential Diagnoses (considered and possible or likely): [CVA, TIA, partial s eizure, complex migraine, intracranial neoplasm, hypoglycemia, electrolyte derangement] ??Differential Diagnoses (considered and unlikely, not requiring evaluation currently): [No reported trauma] MDM Data Please see [facility] for the following: Independent Historians and external Records Review. Historian: [Patient] Independent Historians: ?[Record review] Medication Management: [Reviewed medication list] Social History and determinants: [Reviewed] Please see the body of the note for the following: Any independent interpretations of ECG, imaging studies. All vitals signs/haemodynamics, ordered tests were independently reviewed and interpreted by myself. Nursing triage complaint and vitals reviewed, additional nursing notes were reviewed as available and I agree unless otherwise noted or documented in cont radiction in the chart Vital Signs: Independently reviewed Labs: Independently interpreted Imaging: Independently interpreted Old Medical Records: Independently reviewed, see [facility] for relevant summary and information Pulse Oximetry: [98%] interpreted as [normal on room air] by me [Willow Machine Operator: [Regular Rate, Regular rhythm, no ectopy, NSR] reviewed and interpreted by me] Additionally notably showing: [Hemodynamics reviewed. The patient isn't febrile, not tachycardic, no evidence of hypotension respiratory distress. CBC shows mild leukocytosis of 15.8, unknown significance. Elevated platelets noted. Hemoglobin is normal. Only 59% neutrophils. ESR is slightly elevated. Coagulation panel is unremarkable. Chemistry is also unremarkable. Slightly elevated CRP noted. Ethanol is negative. Advanced imaging with the head was obtained showing no acute intracranial abnormality. CT angiography of the neck and head showed no RVR. Chest x-ray was obtained showing no acute cardiopulmonary disease.] Tests considered but not ordered include: [MRI can be done on the inpatient basis] Social Determinants of Health Impact: Patient was evaluated in [facility] [place] to healthcare due to below par ratio of patient to medical providers. [] Comorbid Conditions Impacting Present Evaluation and Care/Treatment: [None reported] Management Discussions with other Healthcare Providers: [Tele neurology regarding stroke symptoms. He recommends loading aspirin, admit for MRI, given concern for lacunar stroke. Hospitalist regarding admission] Treatment and Disposition Medication Management (Given or considered): [TNKase has been considerably she so far outside the window in her deficits some minor, risks greatly outweigh the benefits]. See EMR for details Consideration for Hospitalization/Escalation/Deescalation of Care: Admission for observation has been considered, and appears to be necessary for further workup of her stroke-like symptoms ?ED Course:?[No clinical deterioration] Patient will require admission to Internal Medicine service for further evaluation and management of their disease process. The case was discussed with [resident] of the admitting service and they were made aware of all the patient's active issues, including the above-mentioned history, physical exam findings, and the diagnostic results, as well as our concerns and suspicions, as well as any possible incidental findings and pending test. They agreed with the admission plan to their service, and agreed to assume responsibility for the patient's ongoing care and management at that point in time. Patient was admitted in [stable] condition. ?Shared decision making:?[] Code status:?FULL Please see the full Electronic Medical Record for full details of nursing documentation, medications list, other records of complete past medical history and conditions, vital signs, laboratory studies, and any radiologic study interpretations by radiologists. Portions of this note were completed using [employer] dictation software and as a result there may exist minor errors in spelling. I have reviewed elements of past family and social history and agree as included in note. Departure Disposition: 09 ADMITTED INPATIENT Impression: Primary Impression: Stroke-like symptoms Additional Impressions: Left facial numbness Left arm numbness Left leg numbness Left arm weakness Dizziness Condition: Stable Referrals: NO PRIMARY CARE PROVIDER (PCP) Signature Scribe Signature: No scribe Attestation: Date: Nov 20, 2024 Time: 20:05 This note accurately reflects clinical decisions, work performed by myself, DO FRANCHESKA Benson NICHOLAS M DO Nov 20, 2024 20:05
--- NOTE | 2024-11-20 20:15 | ELECTROCARDIOGRAPH REPORT ---
[facility] Test Date: 2024-11-20 Test Time: 20:12:15 Pat Name: EDA BEASLEY Department: [facility]- Patient ID: [id number] Room: Gender: F Fairing Worker: FABIANO : 1975 Requested By: LATIA PRITCHARD Order Number: [id number] Reading MD: Measurements Intervals [place] Rate: 78 P: 53 FL: 193 QRS: -24 QRSD: 100 T: 42 QT: 419 QTc: 478 Interpretive Statements Sinus rhythm Borderline left axis deviation Abnormal R-wave progression, late transition Borderline T wave abnormalities Baseline wander in lead(s) V4 Please click the below link to view image of tracing.
[2024-11-20 20:25] LABS: MEAN PLATELET VOLUME 8.1 FL (7.4-10.4); RED CELL DISTRIBUTION WIDTH 14.7 % (11.5-14.5)
[2024-11-20 20:40] LABS: APTT 25 SECONDS (22-32); INR 1.0 INR
[2024-11-20 20:47] LABS: CREATININE 0.69 MG/DL (0.40-0.90); PRO BRAIN NATRIURETIC PEPTIDE 30 PG/ML (0-125); TOTAL CARBON DIOXIDE 24.6 MMOL/L (24-32); eCRCL 82 ML/MIN; eGFR > 90 ML/MIN
--- NOTE | 2024-11-20 20:47 | RADIOLOGY REPORT ---
CLINICAL HISTORY: Left-sided numbness, left upper extremity weakness TECHNIQUE: Helical imaging carried out from skull base to vertex without intravenous contrast. This exam was performed according to our departmental dose optimization program. Up-to-date CT equipment and radiation dose reduction techniques are utilized as appropriate. CTDIVol: 50.57 mGy mGy DLP: 979.76 mGy . WID: COMPARISON: None FINDINGS: The cerebral parenchyma appears to be normal configuration and attenuation. The ventricles, cisterns, and sulci appear age-appropriate. There is no evidence for acute territorial infarct, hemorrhage, or mass effect. The orbits are normal. The visualized paranasal sinuses and mastoid air cells are clear. The soft tissues and osseous structures appear within normal limits. IMPRESSION: 1. No acute territorial infarct, intracranial hemorrhage, or mass effect. 2. If clinical symptoms persist, MRI may be beneficial in further assessment. Critical Result: Stroke Alert Findings discussed with LATIA PRITCHARD at 11/20/2024 08:45 PM, and acknowledged receipt and understanding of the findings.
[2024-11-20 20:52] LABS: ETHANOL < 10 MG/DL (<10)
--- NOTE | 2024-11-20 20:57 | RADIOLOGY REPORT ---
Procedure: CT CTA NECK/HEAD HISTORY: Left-sided numbness, left upper extremity weakness Comparison Study: None Exam Date:11/20/2024 08:26 PM TECHNIQUE: CTA head without and with intravenous contrast. CTA neck with intravenous contrast. 3D image postprocessing was performed and images were used for interpretation and reporting. Radiation Dose : CT Dose: CTDI volume is 16.33 mGy. Dose-length product is 574.67 mGy*cm FINDINGS: CTA head: There is normal enhancement of the visualized distal internal carotid, anterior and middle cerebral arteries. The vertebral, basilar, cerebellar and posterior cerebral arteries are within normal limits. The early parenchymal enhancement is grossly unremarkable. The visualized intracranial venous structures are grossly unremarkable. There is no aneurysm. CTA neck: The visualized thoracic aortic arch and proximal great vessels are unremarkable. The left common, internal and external carotid arteries are within normal limits. The right common, internal and external carotid arteries are within normal limits. The cervical segments of the right and left vertebral arteries are within normal limits. The limited visualized lung apices are clear. The surrounding soft tissues and osseous structures are otherwise unremarkable. IMPRESSION: 1. No acute vascular abnormality identified. All CT scans at this medical facility are performed using dose modulation techniques as appropriate to a performed exam including the following: Automated exposure control was utilized; adjustment of the MA and/or KV according to patient size; and use of iterative reconstruction technique.
--- NOTE | 2024-11-20 21:00 | RADIOLOGY REPORT ---
CHEST RADIOGRAPH REASON FOR EXAM: Stroke Alert COMPARISON: CHEST,SINGLE VIEW on DOS: 08/06/22 TECHNIQUE: One view of the chest is provided FINDINGS: The cardiomediastinal silhouette is within normal limits for technique. There is no focal airspace disease. There is no significant pleural effusion. No acute bony abnormality is identified. IMPRESSION: No radiographic evidence of acute cardiopulmonary process.
--- NOTE | 2024-11-20 23:11 | [facility] CONSULT REPORT ---
[facility] Procedure Note [facility] Procedure Note Consult [facility] Note # Demographics Consult Type: Acute Stroke Level 2 (4.5-24 hrs) Patient Location: Emergency Room First Name: EDA Last Name: RAMOS Date of : 1975 Age: 49 Gender: Female Facility: [facility] Time of Initial Page (): 11/20/2024 22:57 First Contact with Site (): 11/20/2024 22:57 # HPI Chief Complaint: - weakness (focal) - numbness - dizziness - difficulty walking History: 49-year-old presents with left-sided weakness, numbness, and dizziness that began 3 days ago. She reports difficulty ambulating due to these symptoms. The patient states that 3 days ago, she developed left-sided weakness and numbness affecting her face, arm, and leg. Concurrent with these symptoms, she began experiencing dizziness, which worsens with movement. The patient reports feeling exhausted and mentions that her body started aching yesterday, initially leading her to consider it might be the flu. At work, the patient informed her boss that she felt like she was "gonna pass out" and had to sit down for a while. Symptoms didn't improve over the past 3 days so she decided to come to the ED today. Last Known Normal: - 3 days ago # Scores Time of exam and NIHSS (): 11/20/2024 23:06 Level of Consciousness 1a: [0] = Alert; keenly responsive LOC Questions 1b: [0] = Answers both questions correctly LOC Commands 1c: [0] = Performs both tasks correctly Best Gaze 2: [0] = Normal Visual 3: [0] = No visual loss Facial Palsy 4: [0] = Normal symmetrical movements Motor Arm Left 5a: [0] = No drift Motor Arm Right 5b: [0] = No drift Motor Leg Left 6a: [1] = Drift Motor Leg Right 6b: [0] = No drift Limb Ataxia 7: [0] = Absent Sensory 8: [1] = [id number] sensory loss Best Language 9: [0] = No aphasia Dysarthria 10: [0] = Normal Extinction and Inattention 11: [0] = No abnormality NIHSS Total: 2 # Exam SBP: 113 DBP: 86 Cranial Nerves: - decreased left facial sensation Motor: - left lower extremity weakness Sensory: - decreased sensation left face - decreased sensation left upper extremity - decreased sensation left lower extremity # PMH-FH-SH Past Medical History: - prior DVT Social History: - smoker - non-drinker - no drugs # Data Time Head CT personally read by me (Adrian Time): 11/20/2024 23:[address]: - no bleed - per radiologist read Time CTA personally reviewed by me ( Time): 11/20/2024 23:01 CTA Head: - no large vessel occlusion - per radiologist read # Assessment Impression: - Ischemic Stroke (Acute) # Plan Thrombolytic/Intervention: NOT IV Thrombolysis or IA Intervention candidate Thrombolytic Exclusion: > 4.5 hours Intraarterial Exclusion: - no large vessel occlusion (LVO) Target Blood Pressure: - SBP < 220 - DBP < 120 Labs: - hemoglobin A1c - lipid panel - urine drug screen - TSH Imaging: (urgency: routine): - MRI Brain without contrast Diagnostic Test: - echo without bubble study Therapy/Evaluation: - NPO until swallow evaluation - PT/OT evaluation - speech/swallow consultation Medication: - aspirin 81 mg daily - start statin with goal of LDL < 70 Other: - If patient has any neurological deterioration please call me back immediately - permissive hypertension - telemetry monitoring - I have discussed my recommendations with the referring provider Disposition: admit # Logistics Attestation of consult completion: The patient is located at: [facility]. Facility staff participated in the visit. I performed this telemedicine visit from my offsite office utilizing interactive 2 way audio and visual telecommunication technology at the request of the onsite emergency room provider. Total time spent in telemedicine encounter: I spent 15 minutes reviewing clinical data and/or imaging, obtaining history, examining the patient, communicating with the onsite care team, and in preparation of this report. # Demographics First Name: EDA Last Name: BEASLEY Facility: [facility] Neuro Consult Order placed for: Yes BRIELLE JEONG MD Nov 20, 2024 23:11
[2024-11-21] VITALS (15 sets, daily range): BP systolic 80–111; BP diastolic 36–60; PULSE 55–73; RESP 14–17; TEMP 97.9–98.3; O2SAT 89–96
[2024-11-21 00:22] LABS: URINE HCG NEGATIVE (NEG)
[2024-11-21 00:23] LABS: LEUKOCYTE ESTERASE ,URINE NEGATIVE (Neg); NITRITES, URINE NEGATIVE (Neg); OCCULT BLOOD,URINE TRACE-INTACT (Neg)
[2024-11-21 00:31] LABS: UA COLLECTION TYPE CLN CATCH MIDSTREAM
[2024-11-21 00:35] LABS: SQUAMOUS EPITHELIAL CELL,UR MODERATE /LPF (FEW)
[2024-11-21 00:44] LABS: URINE AMPHETAMINE SCREEN NEGATIVE (Neg); URINE BARBITUATE SCREEN NEGATIVE (Neg); URINE BENZODIAZEPINES SCREEN NEGATIVE (Neg); URINE CANNABINOID SCREEN NEGATIVE (Neg); URINE COCAINE SCREEN NEGATIVE (Neg); URINE METHADONE SCREEN NEGATIVE (Neg); URINE OPIATE SCREEN NEGATIVE (Neg); URINE PHENCYCLIDINE SCREEN NEGATIVE (Neg)
[2024-11-21] MEDS ORDERED: potassium Cl 20 mEq SR tablet PO PRN ×2 (00:45)
[2024-11-21] MEDS ORDERED: potassium Cl 40MEQ/1/2NS 520ml 520 ML IV PRN (00:45)
[2024-11-21] MEDS ORDERED: magnesium sulf-water 2g/50mL 50 ML IV PRN (00:45)
[2024-11-21] MEDS ORDERED: mag hydrox/Alum hydrox/simeth 30ml oral suspension PO PRN (00:45)
[2024-11-21] MEDS ORDERED: magnesium Cl slow-release 64mg tablet PO PRN (00:45)
[2024-11-21] MEDS ORDERED: magnesium sulf-water 4G/100mL 100 ML IV PRN (00:45)
--- NOTE | 2024-11-21 01:26 | HISTORY AND PHYSICAL-Residence ---
History & Physical Providers to CC Resident Creating Document: TERRY OMER JEREMY ~ History of Present Illness Primary Medical Doctor: [facility] Reason for Admit\Complaint: Left-sided weakness History of Present Illness This is a 49-year-old female with past medical history of rheumatoid arthritis and COPD, acute bronchitis type who came to the ER with complaints of left-sided weakness. She explained that her symptoms started 2 weeks ago with muscle aches in her legs and lightheadedness. She has lightheadedness with movements, that is when she stands up suddenly while being seated or any other sudden movements. Not associated with nausea or vomiting. Today morning she developed headache, left-sided, 8/10, nonradiating, not associated with photophobia, nausea, no history of trauma. Later in the afternoon she started feeling heaviness in her left side of the body-face arms and leg, associated with pins and needles sensation. She was not able to lift her arm overhead and she had difficulty grasping objects. She also had difficulty walking, she had imbalance where she felt like she would fall if she tried walking. She has slight slurring of speech, which was confirmed by her son who accompanied her. No history of travel, no history of rashes, no history of diarrhea, no falls/LOC, no history of trauma, tinnitus, chest pain, palpitation, diaphoresis, leg swelling. Allergies: Coded Allergies: No Known Allergies (Unverified , 11/20/24) Home Medications Home Medications Active Lidoderm (Lidocaine) 5 % Adh..patch 1 Patch TOP DAILY 30 Days may wear up to 12 hours Reported Airsupra 90-80 Mcg Inhaler (Albuterol Sulfate/Budesonide) 90 Mcg-80 Mcg/Actuation Hfa.aer.ad 90 Mcg INH Q4HWA PRN Motrin* (Ibuprofen) 400 Mg Tablet 1 Tab PO Q6H PRN PRN 5 Days Vitamin D3 (Cholecalciferol (Vitamin D3)) 1,250 Mcg (64306 Unit) Capsule 1 Cap PO Q7D 28 Days Past Medical History Past Medical History Reported arthritis COPD, acute bronchitis type Past Surgical History Surgical History Comment Nothing significant Past Social History Smoking: Non-Smoker, Cigarettes (5 cigarettes a day) Alcohol Use: None Drug Use: None Lives with: Family (Lives with her daughter) Lives In: Home Occupation: employed (Healthcare employee) Domestic Violence: Neg ROS Constitutional: Reports: chills, weakness Eyes: Reports: no symptoms reported ENT: Reports: no symptoms reported Respiratory: Reports: no symptoms reported Cardiovascular: Reports: no symptoms reported Gastrointestinal: Reports: no symptoms reported Genitourinary: Reports: no symptoms reported Female Genitalia: Reports: no reported symptoms Neurological: Reports: speech problem, headache, dizziness, tingling, left sided numbness Musculoskeletal: Reports: no symptoms reported Integumentary: Reports: no symptoms reported Allergic/Immunologic: Reports: no symptoms reported Hematologic/Lymphatic: Reports: no symptoms reported Endocrine: Reports: no symptoms reported Psychiatric: Reports: no symptoms reported Exam Vitals: Vital Signs Date Time Temp Pulse Resp B/P (MAP) Pulse Ox O2 Delivery O2 Flow Rate FiO2 11/21/24 00:05 97.6 61 18 109/53 (71) 96 General: General: Well alert, well oriented, not confused, not agitated, not in acute distress, well cooperated during the physical. HEENT: Conjunctive are pink, sclerae clear, no icterus, pupil is equal in both sides, reactive to light, no ear discharge, no pharyngeal erythema or an edema. Neck: Supple, no JVD, no lymphadenopathy and thyromegaly. Chest: Equal air entry on both lungs, no added sounds, no wheeze. Cardiovascular: S1-S2 regular sinus rhythm and, regular rate, no gallops, no rubs, no murmurs Abdomen: No visible peristalsis, Bowel sounds present on auscultation, soft, nontender, no guarding, no rigidity Extremities: No obvious deformities, no pitting edema bilaterally, capillary refill intact, peripheral pulsations are intact on both sides Musculoskeletal: No joint swelling, deformities, inflammations, and no scoliosis and back tenderness Skin: Warm and dry. Neurological examination: Mental status exam/Intellectual function: alert and consciousness, orientation, memory, slurred speech Cranial nerve 1-12 intact Motor system: Good nutrition, good tone, no involuntary movements Strength in right upper and lower limb- extensor and flexor-5/5 Strength in left upper and lower limb- extensor and flexor-4/5 Sensory system: Crude touch, fine touch, pain temperature, vibration and proprioception preserved in right upper and lower limb Crude touch, pain temperature, vibration and proprioception preserved in left upper and lower limb. Fine touch lost in left upper and lower limb and left side of face. Reflex testing: Biceps (innervated by C5 and C6). Radial brachialis (C6). Triceps (C7). Distal finger flexors (C8). Quadriceps knee jerk (L4). Ankle jerk (S1).-2+ in bilateral upper and lower extremity Babinski sign negative bilaterally Cerebellar: No nystagmus, no Dysdiadokokinesia, [id number] testing could be performed bilaterally Gait could not be assessed since the patient was dizzy. Diagnostic Data Last Recorded Lab Results: 11/20/24201411/20/242014 Diagnostic Data: Laboratory Tests Test 11/20/24 20:15 Prothrombin Time 10.3 SECONDS (9.0-12.0) INR International Normalized Ratio 1.0 INR Activated Partial Thromboplast Time 25 SECONDS (22-32) Coagulation Comments Counseling Services Smoking & Tobacco Cessation: > 10 Minutes Advance Care Planning Advanced Care plannin - 30 Minutes (Full code) Additional Plan Assessment: This is a 49-year-old female with past medical history of rheumatoid arthritis and COPD, acute bronchitis type who came to the ER with complaints of left-sided weakness. Plan: Left-sided weakness most likely due to ischemic stroke Vitals: Pulse rate 70s, blood pressure 110s over 60s. WBC 15.8, ESR 23, 0.78 Coagulation profile normal PT 10.3, INR 1, APTT 25, patient not on any blood thinners Urinalysis normal Head and neck CTA:No acute vascular abnormality identified. Head CT: IMPRESSION: 1. No acute territorial infarct, intracranial hemorrhage, or mass effect. 2. If clinical symptoms persist, MRI may be beneficial in further assessment. Plan: Neurology blue jose alberto consulted. Ordered urine tox, hemoglobin A1c, lipid panel, TSH, MRI head without contrast, echo. No antihypertensive medication to be administered. Permissive hypertension to be maintained Aspirin 325 mg p.o. given in the ER Started Aspirin 81 mg p.o. daily, atorvastatin 40 mg p.o. daily Patient to be started on regular diet after she passes bedside swallow study On fall precautions and aspiration precaution Patient on telemetry. COPD not in acute exacerbation Chest x-ray: No radiographic evidence of acute cardiopulmonary process. Continue home medication Airsupra 90-80 inhaler, 2 puffs p.r.n. Nicotine use disorder Encouraged the patient to quit smoking. The patient shows interest to quit. Prescribed nicotine 14 mg patch Code status: Full code DVT prophylaxis: SCDs. Analgesia/sedation: Morphine/[place] p.r.n. Line/tube: PIV GI prophylaxis: None Nutrition: Regular diet PT: Ordered. Prognosis: Guarded Disposition: Admit to ortho, patient on telemetry. Terry Omer MD PGY1, Internal Medicine [facility] Plan reviewed with bedside team. Patient seen through remote audiovisual assessment through HIPAA compliant setup. All labs, flowsheets, and images reviewed Cumulative nonprocedural care time spent in directed patient care = 30 min Date of Service: Nov 21, 2024 Billing Provider: ELMO OGDEN MD, SHIVANI, RES Nov 21, 2024 01:26 ELMO OGDEN MD Nov 21, 2024 07:57
[2024-11-21] MEDS: HYDROcodone/acetaminophen 10/325mg tab PO PRN (01:47)
[2024-11-21] MEDS ORDERED: NICO-631 TOP (01:50)
[2024-11-21] MEDS ORDERED: TIRZ2.5P3 (01:50)
[2024-11-21] MEDS ORDERED: ALBUTEROL SULFATE INH PRN (01:55)
[2024-11-21] MEDS ORDERED: BUDESONIDE INH PRN (01:55)
[2024-11-21] MEDS ORDERED: nicotine 14mg patch - 24hr TD PRN (02:00)
[2024-11-21] MEDS: normal saline 1000ml 1,000 ML IV SCH (03:16)
[2024-11-21] MEDS: ondansetron/PF 4mg/2ml inj IV PRN (03:17)
[2024-11-21 06:56] LABS: CHOL/HDL RATIO 4.1 (0.00-4.99); LDL CHOLESTEROL 89 MG/DL (50-100)
[2024-11-21] MEDS: K and/or MAG REPLACEMENT MC SCH (08:00)
[2024-11-21] MEDS: magnesium hydroxide 30ml (MOM) UD suspension PO PRN (08:21)
[2024-11-21] MEDS: aspirin 81mg, enteric-coated 1 TAB TABLET.DR PO SCH (08:22)
[2024-11-21] MEDS: docusate sod 100mg capsule PO SCH (08:22)
[2024-11-21 09:25] LABS: MEAN PLATELET VOLUME 8.3 FL (7.4-10.4); RED CELL DISTRIBUTION WIDTH 15.2 % (11.5-14.5)
--- NOTE | 2024-11-21 09:47 | RADIOLOGY REPORT ---
MRI brain HISTORY: Ischemic stroke Comparison: CT brain done 11/20/2024 TECHNIQUE: MR was performed with a surface coil at 1.5 T magnet. Sagittal, axial and coronal T1 and T2-weighted images were obtained. FINDINGS: No areas of restricted diffusion on diffusion-weighted images. No areas of abnormal T2 signal hyperintensity on FLAIR or T2 weighted images No hydrocephalus or midline shift. No extra-axial masses or fluid collections The orbits paranasal sinuses sella and cerebellopontine angles are unremarkable in appearance IMPRESSION: 1. No acute intracranial pathology
[2024-11-21] MEDS: normal saline 1000ml 1,000 ML IV ONE ×2 (10:04→15:14)
[2024-11-21] MEDS ORDERED: ipratropium/albuterol 3ml nebule IH PRN (10:35)
[2024-11-21] MEDS: ipratropium/albuterol 3ml nebule IH SCH (18:35)
[2024-11-21] MEDS: lactose-reduced food (Ensure Enlive) - 237ml bottle PO SCH (18:45)
[2024-11-21] MEDS ORDERED: albuterol 2.5 MG/3 ML nebule NEB PRN (18:55)
[2024-11-21] MEDS: polyvinyl alcohol eye drops 15ML BOTTLE EACHEYE SCH (20:00)
[2024-11-21] MEDS: pantoprazole 40mg Tablet.DR PO SCH (20:22)
--- NOTE | 2024-11-21 23:54 | CARDIOLOGY REPORT ---
APPROVED REPORT EXAM: Comprehensive 2D, Doppler, and color-flow Echocardiogram. Patient Location: 4[address] Blood Pressure: 102/56 mmHg Heart Rate: 62 bpm Rhythm: Sinus Rhythm Indications CVA/TIA Dizziness Search Strategist: None Previous echo: 03/25/2013 [facility] EF: 65% , Patent PFO with right to left flow 2D Dimensions RVDd 3.8 cm LA Diam 4.6 cm IVSd 1.1 (0.7-1.1cm) LVDd 5.4 cm LA Minor 3.8 cm PWd 1.1 (0.7-1.1cm) IVSs 1.3 (0.8-1.2cm) LVDs 3.7 (2.5-4.0cm) Aortic Root(2D) 3.5 cm PWs 1.1 (0.8-1.2cm) LVOT Diameter 2.09 (1.8-2.4cm) LVEF(%) 59.2 (>50%) FS (%) 31.7 % SV 82.9 ml CO 3.7 L/min M-Mode Dimensions IVSd 1.11 (0.7-1.1cm) LVDd 4.94 (4.0-5.6cm) PWd 1.26 (0.7-1.1cm) IVSs 1.30 cm MV EPSS 0.9 (<0.5cm) LVDs 3.56 (2.0-3.8cm) FS (%) 28 % PWs 1.38 cm ESV(Teich) 53.0 ml LVEF(%) 54 (>50%) Aortic Valve AoV Peak Arcadio. 181.0 cm/s AoV VTI 35.6 cm AO Peak GR. 13.1 mmHg AO Mean GR. 6 mmHg LVOT VTI 28.11 cm LVOT Peak Arcadio. 130.0 cm/s DEUCE(VTI)/BSA 2.71 cm2/m2 DEUCE (VTI) 2.71 cm2 Mitral Valve MV E Velocity 74.9 cm/s MV Peak Gr. 4 mmHg MV DECEL TIME 212 ms MV A Velocity 82.0 cm/s MV Mean Gr. 1 mmHg MV PHT 80 ms E/A Ratio 0.9 MVA (PHT) 2.75 cm2 MV VMax 100.9 cm/s MV VMean 54.2 cm/s MVA VTI 2.96 cm2 MV VTI 32.5 cm Tricuspid Valve TR P. Velocity 280 cm/s RAP ESTIMATE 10 mmHg TR Peak Gr. 31 mmHg RVSP 41 mmHg LEFT VENTRICLE Normal LV size with mildly reduced function. Apical cap and apical lateral segments appear hypokinetic. Mild concentric hypertrophy. LVEF is 50-55%. RIGHT VENTRICLE Right ventricle is moderately dilated with mildly reduced function. Estimated PA systolic pressure is 41 mmHg. ATRIA Left atrium is moderately dilated. Mobile interatrial septum with right to left flow detected by color Doppler. Atrial septum is bowed toward the left, consistent with elevated right atrial pressures. The right atrium size is grossly normal in size. AORTIC VALVE Trileaflet AV appears sclerotic without stenosis or insufficiency. MITRAL VALVE Mild MV annular calcification without stenosis. Trace regurgitation. TRICUSPID VALVE TV appears structurally normal with trace regurgitation. PULMONIC VALVE Normal PV without stenosis, physiologic insufficiency. GREAT VESSELS The aortic root is normal in size. Ascending aorta is not well visualized. IVC is not well visualized. PERICARDIUM Grossly normal pericardium. No pericardial effusion seen. Other Information Study Quality: Fair. TDS due to body habitus. Conclusion Normal LV size with mildly reduced function. Apical cap and apical lateral segments appear hypokinetic. Mild concentric hypertrophy. LVEF is 50-55%. Right ventricle is moderately dilated with mildly reduced function. Estimated PA systolic pressure is 41 mmHg. Left atrium is moderately dilated. Mobile interatrial septum with right to left flow detected by color Doppler. Atrial septum is bowed toward the left, consistent with elevated right atrial pressures. The right atrium size is grossly normal in size. Trileaflet AV appears sclerotic without stenosis or insufficiency. Mild MV annular calcification without stenosis. Trace regurgitation. TV appears structurally normal with trace regurgitation. Normal PV without stenosis, physiologic insufficiency. Grossly normal pericardium. No pericardial effusion seen.
[2024-11-22] VITALS (15 sets, daily range): BP systolic 93–134; BP diastolic 36–71; PULSE 59–86; RESP 13–18; TEMP 97.3–98.1; O2SAT 93–98
[2024-11-22 06:41] LABS: MEAN PLATELET VOLUME 8.4 FL (7.4-10.4); RED CELL DISTRIBUTION WIDTH 15.2 % (11.5-14.5)
[2024-11-22 06:53] LABS: CREATININE 0.62 MG/DL (0.40-0.90); TOTAL CARBON DIOXIDE 26.6 MMOL/L (24-32); eCRCL 92 ML/MIN; eGFR > 90 ML/MIN
[2024-11-22] MEDS: nicotine 14mg patch - 24hr TD SCH (07:31)
[2024-11-22] MEDS: HYDROcodone/acetaminophen 5mg/325mg tablet PO PRN (07:47)
[2024-11-22] MEDS ORDERED: metoprolol tartrate 1mg/ml inj IV PRN (10:05)
[2024-11-22] MEDS ORDERED: aminophylline 250mg/10ml inj. IV PRN (10:05)
[2024-11-22] MEDS ORDERED: regadenoson 0.4mg/5ml syringe IV PRN (10:05)
--- NOTE | 2024-11-22 16:05 | PROGRESS NOTE- Residence ---
Progress Note - Resident Providers to CC Resident Creating Document: PARISH SIU, JEREMY CC: ROJELIO AMANDA MD ~ Antibiotic Timeout Antibiotic Ordered?: No Subjective Patient was examined at bedside. Patient does not have any subjective complaints. Patient has not echo findings of apical hypokinesis prompting me to ask about further cardiac history. On further discussion with the patient, patient endorses that she has intermittent chest pain that has sharp in character radiating to the left breast which the resolves on rest. Patient's chest pain does not start when exerting. It usually happens even at rest. The longest episode was for 20 minutes. Patient denies associated symptoms like palpitations, shortness of breath, dizziness, diaphoresis, confusion. Patient has started to have these episodes for the last two years. Patient also describes episodes of palpitations that lasted for six months prior to the last TIA episode that happened in 2013 when she was approximately 41 years old. Patient states that the palpitations went away with a one time medication that she is not able to recall which seems to be unreliable. After the episode of TIA in 2013 described as that started as right-sided headache, pounding in sensation with blurring of vision and weakness of left upper and lower arm that resolved gradually. Patient was not on aspirin or any other anticoagulant for quite a bit of years before this hospitalization. During this hospitalization, on telemetry patient had sinus pauses with the lowest heart rate at 39. Dr. Cesar (on-call cardiology) has been consulted and the above case was discussed who agrees with the plan of Lexiscan in a.m.. Lexiscan could not be done today as the patient had coffee in the morning and had eaten breakfast limiting evaluation. Objective Vital Signs Date Time Temp Pulse Resp B/P (MAP) Pulse Ox O2 Delivery O2 Flow Rate FiO2 11/22/24 15:33 134/62 (86) 11/22/24 15:29 18 11/22/24 10:00 98.1 77 96 Room Air 11/22/24 07:54 0 21 Result Diagram: 11/22/24 0611/22/24600 General: Morbidly obese middle-aged woman, Alert, awake, oriented, not in acute distress, slurred speech HEENT: PERRLA, no icterus, pallor, lymphadenopathy, carotid bruit Respiratory system: Bilateral vesicular breath sounds heard, no adventitious breath sounds CVS: S1-S2 heard, no murmurs/rubs/gallop GI: Soft, nontender, no organomegaly, no guarding/rigidity, bowel sounds present Neuro: Power in upper and lower bilateral extremities: 4/5, no sensory deficit, coordination intact, gait normal, no drooping of the face or loss of sensations on either side of the face. Extremities: No edema cyanosis clubbing/deformities Skin: Warm and dry Coagulation Studies Laboratory Tests Test 11/20/24 20:15 Prothrombin Time 10.3 SECONDS (9.0-12.0) INR International Normalized Ratio 1.0 INR Activated Partial Thromboplast Time 25 SECONDS (22-32) Coagulation Comments Assessment Assessment A 43-year-old female with past medical history of TID presented to the ED in view of left weakness. Patient is admitted for the evaluation management of TIA. On further evaluation patient was found to have apical hypokinesis prompting us to do CAD workup. Plan Plan Possible acute CVA, ruled out Possible Repeat TIA History of prior TIA NIHSS: 2 MRI: No acute intracranial pathology See below for echo findings Tele neurology recommended the following: Allow for permissive hypertension for 48 hours with a goal SBP less than 220, DBP less than 120 (end date 11/22/2024, 11:11 p.m.) A1c: 5.9, LDL: 84, LDL goal less than 70, TSH: 0.66 Negative urine drug screen Aspirin 81 mg once daily Appreciate recs Continue to monitor telemetry PT eval and treat Neuro checks CAD, under evaluation Intermittent sinus pauses Remote H/O ? AFib Echo: EF: 50-55%, RVSP: 41 mmHg, Apical cap and apical lateral segments appear hypokinetic. Moderate dilatation of right ventricle and left atrium. Mobile interatrial septum with right to left flow detected. Atrial septum is bowed toward the left, consistent with elevated right atrial pressures. Lexiscan in a.m that aligned with Cardiology recommendations. Appreciate recs Continue aspirin 81 mg, atorvastatin 80 mg. Have not started on Edgar/ARB or beta charlie in view of soft blood pressures, permissive hypertension and sinus pauses/low heart rate instances respectively. Thrombocytosis Most likely reactive Continue to monitor COPD not in acute exacerbation DuoNeb q.4h PRN Nicotine use disorder Nicotine patch Code status: Full code Diet: Heart healthy, NPO after midnight Anticoagulation: Aspirin DVT prophylaxis: SCD Disposition: Continue care in orthoVioletan in a.m., follow up with random cortisol levels Parish Siu MD Internal Medicine, PGY 2 Date of Service: Nov 22, 2024 Billing Provider: ROJELIO AMANDA MD,PARSIH, RES Nov 22, 2024 16:05
[2024-11-22] MEDS ORDERED: morphine 4 MG/ML inj SYRINge IV PRN ×2 (19:23)
[2024-11-23] VITALS (12 sets, daily range): BP systolic 101–126; BP diastolic 47–62; PULSE 58–108; RESP 11–18; TEMP 98.1–98.3; O2SAT 93–98
[2024-11-23] MEDS: bisacodyl 10mg suppository rectal RC STA (05:28)
[2024-11-23 05:44] LABS: MEAN PLATELET VOLUME 8.8 FL (7.4-10.4)
[2024-11-23 05:45] LABS: RED CELL DISTRIBUTION WIDTH 15.1 % (11.5-14.5)
[2024-11-23 06:29] LABS: CREATININE 0.63 MG/DL (0.40-0.90); TOTAL CARBON DIOXIDE 24.2 MMOL/L (24-32); eCRCL 90 ML/MIN; eGFR > 90 ML/MIN
[2024-11-23] MEDS: regadenoson 0.4mg/5ml syringe IV ONE (09:02)
--- NOTE | 2024-11-23 10:29 | RADIOLOGY REPORT ---
Reason for study/Clinical History: CAD work up Comparison Study: None Myocardial Perfusion Study with SPECT Technique: The patient received an intravenous injection of 8.8 mCi of technetium-99m Sestamibi while at rest. After a short delay, SPECT tomographic images of the heart were obtained. The patient then went to the stress lab where they received an intravenous Lexiscan utilizing standard protocol. 35.2 mCi of technetium-99m Sestamibi was injected intravenously immediately after the start of the infusion. Gated SPECT tomographic images of the heart were acquired and processed. Findings: Rotating planar images show no significant attenuation artifact. The left ventricular size is within normal limits. Stress tomographic images demonstrate normal perfusion. Resting tomographic images demonstrate a similar pattern. Gated portion of the study shows normal wall motion and myocardial thickening. The left ventricular ejection fraction is 53 %. (normal greater than 50%) Impression: Normal left ventricular size, wall motion, and function, without evidence of infarction or of myocardium at ischemic risk. The left ventricular ejection fraction is 53 %.
[2024-11-23] MEDS ORDERED: ATOR20TA66 PO (13:09)
[2024-11-23] MEDS ORDERED: LACT-237 PO (13:09)
[2024-11-23] MEDS ORDERED: PRED10TA23 PO (13:09)
[2024-11-23] MEDS ORDERED: ASPI-1071 PO (13:09)
[2024-11-23] MEDS ORDERED: POLY15DR40 EACHEYE (13:09)
[2024-11-23] MEDS ORDERED: PANT40TA54 PO (13:09)
[2024-11-23] MEDS ORDERED: BUDE10.27 PO (13:12)
--- NOTE | 2024-11-23 16:53 | PROGRESS NOTE- Residence ---
Progress Note - Resident Providers to CC Resident Creating Document: MICHAEL LEAL, RES ~ Antibiotic Timeout Antibiotic Ordered?: No Subjective The patient has been evaluated at bedside. Currently denies any symptoms. Objective Vital Signs Date Time Temp Pulse Resp B/P (MAP) Pulse Ox O2 Delivery O2 Flow Rate FiO2 11/23/24 10:00 98.3 66 11 119/56 (77) 96 Room Air 11/23/24 08:00 0.0 11/23/24 07:19 21 Physical exam: General: Well alert, well oriented, not confused, not agitated, not in acute distress, well cooperated during the physical. HEENT: Conjunctive are pink, sclerae clear, no icterus, pupil is equal in both sides, reactive to light, no ear discharge, no pharyngeal erythema or an edema. Neck: Supple, no JVD, no lymphadenopathy and thyromegaly. Chest: Equal air entry on both lungs, no additional sounds no rhonchi no wheezing at the moment. Cardiovascular: S1-S2 regular sinus rhythm and, regular rate, no gallops, no rubs, no murmurs Abdomen: No visible peristalsis, Bowel sounds present on auscultation, soft, nontender, no guarding, no rigidity Extremities: No obvious deformities, no pitting edema bilaterally, capillary refill intact, peripheral pulsations are intact on both sides Central Nervous System: Power in upper and lower bilateral extremities: 4/5, no sensory deficit, coordination intact, gait normal, no drooping of the face or loss of sensations on either side of the face. Musculoskeletal: No joint swelling, deformities, inflammations, and no scoliosis and back tenderness Skin: Warm and dry. Result Diagram: 11/23/24 0505 11/23/24 0505 Coagulation Studies Laboratory Tests Test 11/20/24 20:15 Prothrombin Time 10.3 SECONDS (9.0-12.0) INR International Normalized Ratio 1.0 INR Activated Partial Thromboplast Time 25 SECONDS (22-32) Coagulation Comments Assessment Assessment 49 years old female patient came to the hospital with chief complaint of left weakness. Plan Plan CVA -ruled out Possible Repeat TIA History of prior TIA NIHSS: 2 MRI: No acute intracranial pathology On atorvastatin 80 mg daily, aspirin 81 mg daily. Continue management as per primary team. Coronary artery disease: Remote H/O ? AFib Echocardiogram: 50-55%, RVSP: 41 mmHg, Apical cap and apical lateral segments appear hypokinetic. Moderate dilatation of right ventricle and left atrium. Mobile interatrial septum with right to left flow detected. Atrial septum is bowed toward the left, consistent with elevated right atrial pressures. Lexiscan: Normal left ventricular size, wall motion, and function, without evidence of infarction or of myocardium at ischemic risk. The left ventricular ejection fraction is 53 %. Plan: Continue aspirin 81 mg daily. Atorvastatin 40 mg daily: LDL goal less than 55. Thrombocytosis COPD not in acute exacerbation Nicotine use disorder Code status: Full code Diet: Heart healthy. Anticoagulation: Aspirin DVT prophylaxis: SCD Disposition: Continue management as per primary team. Continue medical management. Michael Field Internal Medicine Resident [facility] Patient seen and examined by Dr. Minerva MENDOZA. The importance of compliance and, risk factor modification discussed with patient Date of Service: Nov 23, 2024 Billing Provider: JOE BARBOZA MD, FRANCO LUIS, RES Nov 23, 2024 16:53 JOE BARBOZA MD Nov 23, 2024 19:32
--- NOTE | 2024-11-23 17:56 | DISCHARGE SUMMARY-Residence ---
Discharge Summary Providers to CC Resident Creating Document: GAVIN OROZCO RES ~ Discharge Summary Admission Diagnosis: SUSPECTED ISCHEMIC STROKE Hospital Course DATE OF ADMISSION: 11/21/2024 DATE OF DISCHARGE: 11/23/2024 HOSPITAL COURSE SAME MENTIONED DISCHARGE SUMMARY. Discharge Diagnosis\Comment: Acute CVA ruled out Possible TIA History of TIA Acute ACS/CAD ruled out, stress test negative Reactive Thrombocytosis History of COPD not in exacerbation Active smoker Operations\Procedures: Mi scan Consultants: Dr. Barboza anesthesiology tech Complications: None Condition on DC: Stable New Medications: Budesonide/Formoterol Fumarate (Budesonide-Formoterol 80-4.5) 80 Mcg-4.5 Mcg/Actuation Hfa.aer.ad 2 PUFFS PO Q12H for 30 Days, #10.2 GM 0 Refills Prednisone (Prednisone) 10 Mg Tablet 0 PO DAILY, #42 TAB Take 4 tabs daily x4 days, then 3 daily x4 days 2 daily x4 days 1 daily x4 days 1/2 daily x4 days then STOP Aspirin (Ecotrin*) 81 Mg Tablet.dr 1 TAB PO DAILY, #30 TAB.SR Atorvastatin Calcium (Atorvastatin Calcium) 20 Mg Tablet 40 MG PO DAILY for 30 Days, #60 TAB Lactose-Reduced Food (Ensure Enlive) 0.08 Gram-1.5 Kcal/Ml Liquid 1 CAN PO TIDWM, #20 ML Pantoprazole Sodium (Pantoprazole Sodium) 40 Mg Tablet.dr 40 MG PO BKF, #30 TAB.SR Polyvinyl Alcohol (Polyvinyl Alcohol) 1.4 % Drops 1 DROP EACHEYE Q6H, #1 BOTTLE Continued Medications: Albuterol Sulfate/Budesonide (Airsupra 90-80 Mcg Inhaler) 90 Mcg-80 Mcg/Actuation Hfa.aer.ad 90 MCG INH Q4HWA PRN for cough & congestion Cholecalciferol (Vitamin D3) (Vitamin D3) 1,250 Mcg (12242 Unit) Capsule 1 CAP PO Q7D for 28 Days, #4 CAP 0 Refills Ibuprofen* (Motrin*) 400 Mg Tablet 1 TAB PO Q6H PRN PRN for pain or fever for 5 Days, #20 TAB Lidocaine (Lidoderm) 5 % Adh..patch 1 PATCH TOP DAILY for 30 Days, #30 PATCH 0 Refills may wear up to 12 hours Nicotine 14 MG Patch* (Habitrol 14 MG Patch*) 1 Each Patch.td24 1 PATCH TOP DAILY Tirzepatide (Zepbound) 2.5 Mg/0.5 Ml Pen.injctr Discharge Summary: As per HPI by admitting provider TERRY FARRELL, RES: This is a 49-year-old female with past medical history of rheumatoid arthritis and COPD, acute bronchitis type who came to the ER with complaints of left-sided weakness. She explained that her symptoms started 2 weeks ago with muscle aches in her legs and lightheadedness. She has lightheadedness with movements, that is when she stands up suddenly while being seated or any other sudden movements. Not associated with nausea or vomiting. Today morning she developed headache, left- sided, 8/10, nonradiating, not associated with photophobia, nausea, no history of trauma. Later in the afternoon she started feeling heaviness in her left side of the body-face arms and leg, associated with pins and needles sensation. She was not able to lift her arm overhead and she had difficulty grasping objects. She also had difficulty walking, she had imbalance where she felt like she would fall if she tried walking. She has slight slurring of speech, which was confirmed by her son who accompanied her. No history of travel, no history of rashes, no history of diarrhea, no falls/LOC, no history of trauma, tinnitus, chest pain, palpitation, diaphoresis, leg swelling. Hospital course: On further evaluation her vitals were stable. Permissive hypertension maintained for [address] head acute intracranial abnormalities/infarcts. CTA ruled out vascular abnormalities. Tele neuro was consulted recommended to start loading dose aspirin 325 mg and aspirin 81 p.o. daily along with statin 40 p.o. daily. MRI head ruled out acute CVA. Echo was done which showed an EF of 50-55% RVSP 41. Apical cap and apical lateral segments appeared hypokinetic. There was a concern for underlying CAD as she was complaining of intermittent chest pain radiating to the back. With the above echo findings and her concerning symptoms cardiology was consulted who recommended to get a Lexiscan. Mi was done this morning which showed that there is no infarction of the myocardium. Continue aspirin statin and we are not able to start a beta charlie at this time as her blood pressures has been low. Ordered a.m. cortisol level, talked with the patient to follow up with the results and discuss with the primary care provider regarding the possibility of underlying adrenal insufficiency considering her soft blood pressures. Also given her breathing treatments and steroids as she is an active smoker. She worked with physical therapy and has been cleared for discharge. Her hospital course is uncomplicated she is hemodynamically stable on the day of discharge and her physical exam is as follows: General: Morbidly obese middle-aged woman, Alert, awake, oriented, not in acute distress, slurred speech HEENT: PERRLA, no icterus, pallor, lymphadenopathy, carotid bruit Respiratory system: Bilateral vesicular breath sounds heard, no adventitious breath sounds CVS: S1-S2 heard, no murmurs/rubs/gallop GI: Soft, nontender, no organomegaly, no guarding/rigidity, bowel sounds present Neuro: Power in upper and lower bilateral extremities: 4/5, no sensory deficit, coordination intact, gait normal, no drooping of the face or loss of sensations on either side of the face. Extremities: No edema cyanosis clubbing/deformities Skin: Warm and dry Discharge medications can be found above. Patient is being discharged with the following advice: FOLLOW UP WITH YOUR PCP AT [facility] WITHIN 2 WEEKS. USE BREATHING TREATMENTS WITH INHALERS PRN, RECOMMENDED TO USE BUDESONIDE INH BID AND ALBUTEROL YOUR RESCUE INHALER. FOR YOUR INTERMITTENT CHEST PAINS WE DID THE CARDIAC WORK UP AND THE STRESS TEST, STRESS TEST WAS NEGATIVE. YOU PASSED THE TEST. IT IS RECOMMENDED THAT YOU FOLLOW UP WITH DR BARBOZA OUTPATIENT FOR YOU HEART, PLEASE CALL HIS OFFICE AND MAKE AN APPOINTMENT. RECOMMENDED STRICT ABSTEINCE FROM SMOKING. YOUR WORK UP FOR STROKE WAS NEGAITVE, YOUR MRI OF THE HEAD RULED OUT ACUTE STROKE. WE HAVE STARTED YOU ON ASPIRIN 81 MG AND STATIN 40 MG DAILY, RECHECK LDL IN 3 MONTHS. THESE MEDICATIONS ARE FOR YOUR HEART AND ALSO PREVENT STROKE. HAVE NOT STARTED ANY BETA BLOCKERS YOU HAVE BEEN HAVING SOFT BLOOD PRESSURES. IT IS RECOMMENDED THAT YOU FOLLOW UP WITH YOUR CORSTISOL LEVEL TO EVALUATE FOR ANY ADRENAL INSUFFICENCY CONSIDERING YOUR PERSISTANT LOW BP, FOLLOW UP AND DISCUSS WITH YOUR PCP REGARDING THIS. IF CONDITION WORSENS CALL 911 OR GO TO THE NEAREST ER IMMEDITALEY. Dr. Brennan's office number for cardiac follow up at [phone] office located at [address] [place] [address], [phone] *Problems/Diagnosis: (1) TIA (transient ischemic attack) Total Time Spent on D/C: > 30 Minutes Date of Service: Nov 23, 2024 Billing Provider: ROJELIO AMANDA MD, ELIZABETH, JEREMY Nov 23, 2024 17:55
== END 2024-11-23 16:16 | disposition home or self-care (01) | DRG 47 ==
LOC: ER 19:45 → ED HOLD 11-21 00:47 → EDBEDREQ 11-21 01:43 → ORTHO 4S 11-21 02:33
PROVIDERS: ADMIT Internal Medicine Critical Care Medicine; ATTEND Family Medicine
PROC: B3251ZZ Computerized Tomography (CT Scan) of Bilateral Common Carotid Arteries using Low Osmolar Contrast (ICD-10-PCS; principal; 2024-11-20)
PROC: B32G1ZZ Computerized Tomography (CT Scan) of Bilateral Vertebral Arteries using Low Osmolar Contrast (ICD-10-PCS; 2024-11-20)
PROC: B3201ZZ Computerized Tomography (CT Scan) of Thoracic Aorta using Low Osmolar Contrast (ICD-10-PCS; 2024-11-20)
PROC: B3281ZZ Computerized Tomography (CT Scan) of Bilateral Internal Carotid Arteries using Low Osmolar Contrast (ICD-10-PCS; 2024-11-20)
PROC: 4A02XM4 Measurement of Cardiac Total Activity, External Approach (ICD-10-PCS; 2024-11-23)
PROC: 3E073KZ Introduction of Other Diagnostic Substance into Coronary Artery, Percutaneous Approach (ICD-10-PCS; 2024-11-23)
DX: G45.9 Transient cerebral ischemic attack, unspecified (principal); D75.839 Thrombocytosis, unspecified; J44.9 Chronic obstructive pulmonary disease, unspecified; Z20.822 Contact with and (suspected) exposure to COVID-19; M54.9 Dorsalgia, unspecified; G89.29 Other chronic pain; Z87.442 Personal history of urinary calculi
CPT/HCPCS: 36415; 70450; 70496; 70498; 70551; 71045; 78452; 80048; 80053; 80061; 80305; 80320; 81001; 81025; 82948; 83036; 83735; 83880; 84132; 84145; 84443; 84484; 85025; 85610; 85651; 85730; 86140; 86885; 86900; 86901; 87081; 87811; 93005; 93017; 93306; 94640; 94760; 97116; 97161; 97530; 99285; A4615; A9500; G0378; J2270; J2405; J2785; J2919; J7030; Q9967